=== PATIENT | male | born 1960 | race Caucasian/White ===

== ENCOUNTER 2019-07-14 15:40 | Inpatient (IN) | payer MEDICARE ==
[~2019-07-14] VITALS: Ht 165.1 cm; Wt 55.5 kg
[2019-07-14] MEDS ORDERED: HYDROCODON-ACE1 EA10 PO (15:51)
[2019-07-14] MEDS ORDERED: REMERON15 MG PO (15:51)
[2019-07-14] MEDS ORDERED: CYCLOBENZAPRINE10 MG PO (15:51)
[2019-07-14] MEDS ORDERED: TENORMIN25 MG PO (15:52)
[2019-07-14] MEDS ORDERED: GABAPENTIN100 MG PO (15:52)
[2019-07-14] MEDS ORDERED: METFORMIN HCL500 M1 PO (15:52)
[2019-07-14] MEDS ORDERED: DIOVAN80 MG PO (15:53)
[2019-07-14] MEDS ORDERED: NORVASC10 MG PO (15:53)
[2019-07-14 16:26] LABS: APPEARANCE CLEAR (CLEAR); BILIRUBIN NEGATIVE (NEGATIVE); COLOR YELLOW (YELLOW); GLUCOSE NEGATIVE (NEGATIVE); KETONE NEGATIVE (NEGATIVE); NITRITE NEGATIVE (NEGATIVE); PROTEIN NEGATIVE (NEGATIVE); SPECIFIC GRAVITY 1.015 (1.005-1.020); UROBILINOGEN NORMAL (NORMAL)
[2019-07-14 16:45] LABS: BASOPHILS 0.5 % (0-2); EOSINOPHILS 2.5 % (0-7); HEMATOCRIT 38.5 % (42.0-54.0); IMMATURE GRANULOCYTES 0.1 % (0-5); LYMPHOCYTES 20.7 % (15-50); MCH 30.7 pg (26.0-34.0); MCHC 33.8 g/dL (31.0-37.0); MCV 90.8 fL (80.0-100.0); MONOCYTES 6.3 % (2-11); NEUTROPHILS 69.9 % (40-80); PLATELET COUNT 276 10x3/uL (130-400); RBC 4.24 10x6/uL (4.20-6.10); RDW 13.8 % (11.5-14.5); WBC 9.4 10x3/uL (4.8-10.8)
[2019-07-14 16:53] LABS: CALC OSMOLALITY 283 mosm/kg (275-300); CALCIUM 9.4 mg/dL (8.5-10.1); CARBON DIOXIDE 25.6 mmol/L (21.0-32.0); CHLORIDE - SERUM 105 mmol/L (98-107); CREATININE - SERUM 1.4 mg/dL (0.6-1.3); GLUCOSE 131 mg/dL (74-106); POTASSIUM - SERUM 4.4 mmol/L (3.5-5.1); SODIUM 140 mmol/L (136-145); UREA NITROGEN 20 mg/dL (7-18); eGFR NON AFRICAN AMERICAN 55 mL/min (90-120)
[2019-07-14 16:54] LABS: APTT 26.9 SECONDS (22.8-39.4); PROTIME 12.7 SECONDS (11.6-15.0)
[2019-07-14 17:09] LABS: ALBUMIN 3.9 g/dL (3.4-5.0); ALKALINE PHOSPHATASE 43 U/L (46-116); ALT (SGPT) 20 U/L (10-68); BILIRUBIN - TOTAL 0.43 mg/dL (0.2-1.3); CREATINE KINASE 115 UL (21-232); PRO BNP 64 pg/mL (0-125); PROTEIN - SERUM 6.8 g/dL (6.4-8.2)
[2019-07-14 17:19] LABS: TROPONIN-I < 0.017 ng/mL (0.000-0.060)
--- NOTE | 2019-07-14 20:00 | NUR ---
PT ARRIVED TO FLOOR VIA STRETCHER. NO SIGNS OF DISTRESS. AAOX4. PT STATES HE NEEDS HIS NORCO THAT HE TAKES AT HOME. WILL PAGE RENAL. PT DENIES ANY OTHER NEEDS AT THIS TIME. CL IN REACH, BED IN LOWEST POSITION.
--- NOTE | 2019-07-14 21:00 | NUR ---
PAGED PORTAINER OPERATOR RENAL FOR PAIN MEDICATION, PT C/O PAIN THAT IS CHRONIC.
--- NOTE | 2019-07-14 21:22 | NUR ---
MICHAEL BAHENA RETURNED PAGE. ONE TIME DOSE OF NORCO 10 FOR TONIGHT AND TO START FINGER STICK GLUCOSE.
[2019-07-15] VITALS (7 sets, daily range): BP systolic 86–124; BP diastolic 51–73; Ht 165.1 cm; Wt 55.5 kg
[2019-07-15 06:09] LABS: BASOPHILS 0.5 % (0-2); EOSINOPHILS 4.4 % (0-7); HEMATOCRIT 35.9 % (42.0-54.0); HEMOGLOBIN 11.8 g/dL (13.5-17.5); IMMATURE GRANULOCYTES 0.4 % (0-5); LYMPHOCYTES 30.8 % (15-50); MCH 29.8 pg (26.0-34.0); MCHC 32.9 g/dL (31.0-37.0); MCV 90.7 fL (80.0-100.0); MEAN PLATELET VOLUME 10.2 fL (7.4-10.4); MONOCYTES 9.1 % (2-11); NEUTROPHILS 54.8 % (40-80); PLATELET COUNT 239 10x3/uL (130-400); RBC 3.96 10x6/uL (4.20-6.10); RDW 13.6 % (11.5-14.5); WBC 8.5 10x3/uL (4.8-10.8)
[2019-07-15 06:32] LABS: ANION GAP 12.7 mmol/L (8-16); CALCIUM 8.9 mg/dL (8.5-10.1); CARBON DIOXIDE 26.1 mmol/L (21.0-32.0); CREATININE - SERUM 1.5 mg/dL (0.6-1.3); MAGNESIUM - SERUM 1.8 mg/dL (1.8-2.4); PHOSPHOROUS 3.4 mg/dL (2.5-4.9); POTASSIUM - SERUM 3.8 mmol/L (3.5-5.1)
[2019-07-15 16:23] LABS: APPEARANCE HAZY (CLEAR); BILIRUBIN NEGATIVE (NEGATIVE); COLOR YELLOW (YELLOW); GLUCOSE NEGATIVE (NEGATIVE); KETONE NEGATIVE (NEGATIVE); NITRITE NEGATIVE (NEGATIVE); PROTEIN TRACE mg/dL (NEGATIVE); UROBILINOGEN NORMAL (NORMAL)
[2019-07-15 16:30] LABS: RED CELLS - URINE 25-50 /hpf (0-5); WHITE CELLS - URINE 0-5 /hpf (NEGATIVE)
[2019-07-15 16:31] LABS: BACTERIA NONE SEEN /hpf (NEGATIVE); EPITHELIAL CELLS NSEEN /hpf (0-5)
--- NOTE | 2019-07-15 17:24 | NUR ---
AT 1630 PT HAD A TEMP OF 101.3. DR. KWONG HERE AND ORDERS RECEIVED. GAN REMOVED WITHOUT DIFFICULTY. ROCEPHIN STARTED AND FLU SWAB OBTAINED AND TAKEN TO LAB. TEMP IS NOW 99.1 TEMPORAL. PT ONLY C/O FEELING CONGESTED IN HIS HEAD. ORDER FOR GUAIFENESIN TO START TONIGHT. NO OTHER REQUESTS OR COMPLAINTS. SL PATENT TO LEFT AC WITHOUT REDNESS OR EDEMA.
--- NOTE | 2019-07-15 17:36 | NUR ---
DECLINED USE OF SCDS.
--- NOTE | 2019-07-15 18:05 | NUR ---
I CONCUR WITH THE CHEMICALS FERMENTATION OPERATOR ASSESSMENT OF THIS PATIENT.
--- NOTE | 2019-07-15 20:00 | NUR ---
BLADDER SCAN DONE AND SHOWS 200ML OF URINE. PT UNABLE TO VOID. WILL CONTINUE TO MONITOR.
[2019-07-16] VITALS: BP 109/63
[2019-07-16 00:30] VITALS: BP 102/62
--- NOTE | 2019-07-16 02:45 | NUR ---
PT UNABLE TO VOID. BLADDER SCANNER SHOWS 450ML OF URINE IN BLADDER. GAN CATHETER PLACED WITHOUT DIFFICULTY.
[2019-07-16 04:21] VITALS: BP 73/39
[2019-07-16 04:50] VITALS: BP 98/62
[2019-07-16 05:23] LABS: BASOPHILS 0.5 % (0-2); EOSINOPHILS 5.1 % (0-7); HEMATOCRIT 35.1 % (42.0-54.0); HEMOGLOBIN 11.6 g/dL (13.5-17.5); IMMATURE GRANULOCYTES 0.3 % (0-5); LYMPHOCYTES 35.8 % (15-50); MCH 30.3 pg (26.0-34.0); MCV 91.6 fL (80.0-100.0); MEAN PLATELET VOLUME 10.3 fL (7.4-10.4); MONOCYTES 9.7 % (2-11); NEUTROPHILS 48.6 % (40-80); PLATELET COUNT 233 10x3/uL (130-400); RBC 3.83 10x6/uL (4.20-6.10); RDW 13.6 % (11.5-14.5); WBC 8.8 10x3/uL (4.8-10.8)
[2019-07-16 05:42] LABS: ANION GAP 11.6 mmol/L (8-16); CARBON DIOXIDE 28.5 mmol/L (21.0-32.0); CREATININE - SERUM 1.4 mg/dL (0.6-1.3); MAGNESIUM - SERUM 1.8 mg/dL (1.8-2.4); PHOSPHOROUS 3.6 mg/dL (2.5-4.9); POTASSIUM - SERUM 4.1 mmol/L (3.5-5.1)
[2019-07-16 09:42] VITALS: BP 90/56
[2019-07-16] MEDS ORDERED: FLOMAX0.4 MG PO (12:39)
--- NOTE | 2019-07-16 14:03 | MORECARE ---
CASE MANAGEMENT DISCHARGE SUMMARY PATIENT: CHRIS WINSLOW UNIT: [id number] ADM DATE: 07/14/19 AGE: 58 : 58 SEX: M ROOM/BED: D.2103 AUTHOR: MIKE GOMEZ PHYSICIAN: REFERRING PHYSICIAN: MELINA KWONG DO DATE OF SERVICE: 07/16/19 Discharge Plan Patient Name: CHRIS WINSLOW [facility] [facility] 1960 Planned Disposition: Home Anticipated Discharge Date: 07/16/19 Discharge Date: Expected LOS: 2 Initial Reviewer: [email or web address] Initial Review Date: 07/16/2019 Generated: 07/16/19 3:02 pm Patient Name: CHRIS WINSLOW Page [id number] at 1403 All edits/amendments must be made on the electronic document DICTATION DATE: 07/16/19 140 STEM CRUSHER: ZULEYMA 07/16/19 1402 RPT#: [id number] DC DATE: STATUS: ADM IN [facility] [address] [place] [address] END OF REPORT
--- NOTE | 2019-07-16 14:11 | MORECARE ---
CASE MANAGEMENT DISCHARGE SUMMARY PATIENT: CHRIS WINSLOW UNIT: [id number] ADM DATE: 07/14/19 AGE: 58 : 58 SEX: M ROOM/BED: D.2103 AUTHOR: JASON,DOC PHYSICIAN: REFERRING PHYSICIAN: MELINA KWONG DO DATE OF SERVICE: 07/16/19 Discharge Plan Patient Name: CHRIS WINSLOW Facility: [facility]:[place] : 1960 Planned Disposition: Home Anticipated Discharge Date: 07/16/19 Discharge Date: Expected LOS: 2 Initial Reviewer: [email or web address] Initial Review Date: 07/16/2019 Generated: 07/16/19 3:10 pm Comments DCP- Discharge Planning Updated by [email or web address]: Bebeto Lazar on 07/16/19 1:[address] Patient Name: CHRIS WINSLOW Admission Status: ER Accout number: [id number] Admission Date: 07-14-2019 : 1960 Admission Diagnosis: Attending: QUYEN Current LOS: 2 Anticipated DC Date: 07-16-2019 Planned Disposition: Home Primary Insurance: MEDICARE A & B Discharge Planning Comments: CM MET WITH PT IN ROOM TO DISCUSS DISCHARGE PLANNING AND NEEDS. PT REPORTS LIVING AT HOME INDEPENDENTLY WITH HIS NEPHEW. 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 PT HAS CANE HE USES OCCAISIONALLY WITH NO MEDICAL EQUIPMENT PROVIDER PREFERENCE. PT HAS NO OUTSIDE SERVICES ASSISTING IN THE HOME. CM DISCUSSED AVAILABILITY OF HOME HEALTH, REHAB SERVICES AND MEDICAL EQUIPMENT. PT DENIES DISCHARGE NEEDS, REPORTS HIS NEPHEW WILL PICK HIM UP FOR DISCHARGE HOME. REGISTERED LAND SURVEYOR NURSE NOTIFIED. PHYSICAL HOME ADDRESS IS [address] [place] [address]. Home Health Lvn: Bebeto Lazar DCPIA - Discharge Planning Initial Assessment Updated by [email or web address]: Bebeto Lazar on 07/16/19 2:05 pm * Is the patient Alert and Oriented? Yes * How many steps to enter\exit or inside your home? * PCP DR. HEAL[facility], [facility] [place] [facility]. * Pharmacy [facility] * Preadmission Environment Home with Family * ADLs Independent * Equipment Cane * Other Equipment NONE * List name and contact numbers for known caregivers / representatives who currently or will assist patient after discharge: JORDEN SINGH, * Verbal permission to speak to the caregivers and representatives has been obtained from the patient. N/A * Community resources currently utilized None * Please name any agencies selected above. NONE * Additional services required to return to the preadmission environment? No * Can the patient safely return to the preadmission environment? Yes * Has this patient been hospitalized within the prior 30 days at any hospital? No Patient Name: CHRIS WINSLOW Page [phone] at 1411 All edits/amendments must be made on the electronic document DICTATION DATE: 07/16/191409 LEGAL ASSOCIATE: ZULEYMA 07/16/191409 RPT#: [id number] DC DATE: STATUS: ADM IN [facility] [address] [place] [address] END OF REPORT
== END 2019-07-16 14:52 | disposition home or self-care (01) | DRG 683 ==
LOC: D.ER 15:40 → D.M2 19:13
PROVIDERS: Emergency Medicine; ADMIT Internal Medicine; ATTEND Internal Medicine
DX: N17.9 Acute kidney failure, unspecified (principal); N13.8 Other obstructive and reflux uropathy; N39.0 Urinary tract infection, site not specified; I12.9 Hypertensive chronic kidney disease with stage 1 through stage 4 chronic kidney disease, or unspecified chronic kidney disease; N18.3 Chronic kidney disease, stage 3 (moderate); E11.22 Type 2 diabetes mellitus with diabetic chronic kidney disease; D63.1 Anemia in chronic kidney disease; M54.9 Dorsalgia, unspecified; G89.29 Other chronic pain; K59.09 Other constipation; H54.8 Legal blindness, as defined in USA; Z87.891 Personal history of nicotine dependence

== ENCOUNTER 2019-07-20 14:11 | Emergency (ER) | payer MEDICARE ==
[~2019-07-20] VITALS: Ht 165.1 cm; Wt 61.4 kg
[~2019-07-20 14:11] MED LIST: CYCLOBENZAPRINE10 MG PO; DIOVAN80 MG PO; FLOMAX0.4 MG PO; GABAPENTIN100 MG PO; HYDROCODON-ACE1 EA10 PO; METFORMIN HCL500 M1 PO; NORVASC10 MG PO; REMERON15 MG PO; TENORMIN25 MG PO
[2019-07-20 14:24] VITALS: BP 124/73; Ht 165.1 cm; Wt 61.4 kg
[2019-07-20] MEDS ORDERED: FLOMAX0.4 MG PO (14:25)
[2019-07-20 14:46] LABS: BASOPHILS 0.2 % (0-2); EOSINOPHILS 2.7 % (0-7); HEMATOCRIT 34.5 % (42.0-54.0); HEMOGLOBIN 11.1 g/dL (13.5-17.5); IMMATURE GRANULOCYTES 0.1 % (0-5); LYMPHOCYTES 17.5 % (15-50); MCH 30.2 pg (26.0-34.0); MCHC 32.2 g/dL (31.0-37.0); MCV 93.8 fL (80.0-100.0); MEAN PLATELET VOLUME 9.6 fL (7.4-10.4); MONOCYTES 6.1 % (2-11); NEUTROPHILS 73.4 % (40-80); PLATELET COUNT 261 10x3/uL (130-400); RBC 3.68 10x6/uL (4.20-6.10); RDW 13.9 % (11.5-14.5); WBC 9.2 10x3/uL (4.8-10.8)
[2019-07-20 14:59] LABS: ANION GAP 13.3 mmol/L (8-16); CALCIUM 9.8 mg/dL (8.5-10.1); CARBON DIOXIDE 29.6 mmol/L (21.0-32.0); CREATININE - SERUM 1.2 mg/dL (0.6-1.3); POTASSIUM - SERUM 4.9 mmol/L (3.5-5.1)
[2019-07-20 15:11] LABS: ALBUMIN 3.7 g/dL (3.4-5.0); BILIRUBIN - TOTAL 0.43 mg/dL (0.2-1.3); PROTEIN - SERUM 6.4 g/dL (6.4-8.2)
[2019-07-20 15:30] LABS: APPEARANCE CLEAR (CLEAR); BILIRUBIN NEGATIVE (NEGATIVE); COLOR YELLOW (YELLOW); GLUCOSE NEGATIVE (NEGATIVE); KETONE NEGATIVE (NEGATIVE); NITRITE NEGATIVE (NEGATIVE); PROTEIN NEGATIVE (NEGATIVE); UROBILINOGEN NORMAL (NORMAL)
[2019-07-20 15:33] LABS: RED CELLS - URINE 0-5 /hpf (0-5); WHITE CELLS - URINE 0-5 /hpf (NEGATIVE)
[2019-07-20 15:34] LABS: BACTERIA FEW /hpf (NEGATIVE)
== END 2019-07-20 17:13 | disposition home or self-care (01) ==
LOC: D.ER 14:11
PROVIDERS: Family Medicine
DX: R60.0 Localized edema (principal); T50.905A Adverse effect of unspecified drugs, medicaments and biological substances, initial encounter; I10 Essential (primary) hypertension

== ENCOUNTER 2019-08-06 11:35 | Outpatient (CLI) | payer MEDICARE ==
[2019-07-20 14:24] VITALS: BMI 22.5
[2019-08-05 09:11] LABS: HEMOGLOBIN 14.5 g/dL (13.5-17.5); MCH 30.7 pg (26.0-34.0); MCHC 33.7 g/dL (31.0-37.0); MCV 90.9 fL (80.0-100.0); MEAN PLATELET VOLUME 9.5 fL (7.4-10.4); RBC 4.73 10x6/uL (4.20-6.10); RDW 13.6 % (11.5-14.5); WBC 13.2 10x3/uL (4.8-10.8)
[2019-08-05 09:22] LABS: ANION GAP 13.6 mmol/L (8-16); CALCIUM 9.5 mg/dL (8.5-10.1); CARBON DIOXIDE 28.3 mmol/L (21.0-32.0); CREATININE - SERUM 1.4 mg/dL (0.6-1.3); POTASSIUM - SERUM 4.9 mmol/L (3.5-5.1)
[~2019-08-06 11:35] MED LIST changes: +ALBUTEROL SULF8.5 GM INH; +EXFORGE 10-3201 TAB PO; +GLUCOPHAGE500 MG PO; +LIPITOR40 MG PO; +REMERON30 MG PO; +TENORMIN100 MG PO
--- NOTE | 2019-08-06 14:03 | NUR ---
1210 ON ASSESSMENT PATIENT STATES HE ATE BREAKFAST ABOUT 0900 THIS AM[address] SUR[address]ERY CANCELLED. DR FINNEY STATES THEY WILL RE SCHEDULE FOR SATURDAY. IV REMOVED WITH [facility] INTACT. DC'D HOME. ADVISED TO CALL DR FINNEY'S OFFICE TO GET RESCHEDULED AND TOLD NOT TO EAT OR DRINK AFTER MIDNIGHT THE NIGHT BEFORE SURGERY. VOICED UNDERSTANDING.
== END 2019-08-06 11:36 | disposition home or self-care (01) ==
LOC: D.OPS 11:35 → D.PAN 12:15 → EDSTATUS 12:15 → D.PAN 13:30 → D.OPS 13:30
PROVIDERS: Anesthesiology; ATTEND Urology
DX: R33.9 Retention of urine, unspecified (principal); N40.1 Benign prostatic hyperplasia with lower urinary tract symptoms; N13.8 Other obstructive and reflux uropathy; Z53.9 Procedure and treatment not carried out, unspecified reason

== ENCOUNTER 2019-08-10 09:00 | Emergency (ER) | payer MEDICARE ==
[~2019-08-10] VITALS: Ht 165.1 cm; Wt 60.5 kg
[2019-08-10 09:15] VITALS: BP 98/61; Ht 165.1 cm; Wt 60.5 kg
[2019-08-10] MEDS ORDERED: SMZ-TMP DS TABL1 TAB PO (09:58)
== END 2019-08-10 10:24 | disposition home or self-care (01) ==
LOC: D.ER 09:00
DX: R33.9 Retention of urine, unspecified (principal); E11.9 Type 2 diabetes mellitus without complications; I10 Essential (primary) hypertension; Z79.84 Long term (current) use of oral hypoglycemic drugs

== ENCOUNTER 2019-08-11 09:40 | Day surgery (SDC) | payer MEDICARE ==
[~2019-08-11] VITALS: Ht 165.1 cm; Wt 60.3 kg
[~2019-08-11 09:40] MED LIST changes: +SMZ-TMP DS TABL1 TAB PO
[2019-08-11 10:08] LABS: HEMATOCRIT 38.8 % (42.0-54.0); HEMOGLOBIN 12.9 g/dL (13.5-17.5); MCH 30.4 pg (26.0-34.0); MCHC 33.2 g/dL (31.0-37.0); MCV 91.3 fL (80.0-100.0); MEAN PLATELET VOLUME 9.8 fL (7.4-10.4); RBC 4.25 10x6/uL (4.20-6.10); RDW 13.6 % (11.5-14.5); WBC 18.6 10x3/uL (4.8-10.8)
[2019-08-11 10:15] LABS: ANION GAP 13.6 mmol/L (8-16); CALCIUM 9.7 mg/dL (8.5-10.1); CARBON DIOXIDE 24.7 mmol/L (21.0-32.0); CREATININE - SERUM 1.6 mg/dL (0.6-1.3); POTASSIUM - SERUM 5.3 mmol/L (3.5-5.1)
[2019-08-11 10:25] VITALS: Ht 165.1 cm; Wt 60.3 kg
--- NOTE | 2019-08-11 15:34 | NUR ---
UPON ARRIVAL TO UNIT, PT STATES URGE TO HAVE BM. I TOLD HIM THAT I CAN GET A BED CEDILLO FOR HIM RIGHT NOW, OTHERWISE HE WILL HAVE TO WAIT TO GET UP TO GO TO THE BATHROOM SINCE HE JUST HAD ANESTHESIA FOR PROCEDURE. PT IS CONFUSED. ASKED WHEN HE WAS GOING TO HAVE HIS PROCEDURE. PT DID NOT REALIZE PROCEDURE FINISHED AND IS NOW RECOVERING. PT VERY ADAMANT ABOUT HAVING A BM. I WAITED A FEW MORE MINUTES BEFORE HELPING PT TO BATHROOM W/ HELP OF ANOTHER RN.
--- NOTE | 2019-08-11 16:30 | NUR ---
DC INSTRUCTIONS GIVEN TO PT. STATES UNDERSTANDING. DC'D IV CATH FULLY INTACT.
--- NOTE | 2019-08-11 16:40 | NUR ---
PT LEFT UNIT VIA WC AT 1640
--- NOTE | 2019-08-12 08:51 | OP ---
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 PROCEDURE: UroLift times 4. FINDINGS: Obstructive bilateral lateral lobes of the prostate and also a tight bladder neck. Single ureteral orifices bilaterally with no bladder tumors. ESTIMATED BLOOD LOSS: None. CLINICAL HISTORY: This is a 58-year-old male with a history of diabetes mellitus type 2 with peripheral neuropathy. He has also had a stroke with loss of his left visual field. He has been in urinary retention since July 22, 2019 when he went to the Emergency Room with urinary retention. Postvoid residual was over 700 mL. He has been put on tamsulosin by his primary care doctor about 1 month before he went into urinary retention. He is not finding any benefit from it. His IPSS score is 15 and quality of life score is 6. He comes today to have the UroLift procedure done. HE IS ALLERGIC TO MORPHINE AND BLACK PEPPER. He was given Levaquin IV telephonic nurse case manager to the OR. DESCRIPTION OF PROCEDURE: The patient was given IV sedation. He was then placed into lithotomy position. His indwelling Chapin catheter was removed. He was prepped and draped. The UroLift scope was introduced. The lateral lobes of the prostate showed obstruction. The bladder neck is also somewhat tight. There is no median lobe. Going into the bladder, there is inflammation from the indwelling Chapin catheter. No bladder tumors were seen. There were single ureteral orifices bilaterally. A 1.5 cm distal to the bladder neck a UroLift unit was placed, one on each side at the anterolateral sulcus. Then, at the level of the verumontanum a UroLift unit was placed at the anterolateral sulcus one on each side. This opened up the prostatic urethra. The scope was removed. A 16-Setswana Chapin catheter was inserted into the bladder. The balloon was inflated with 10 mL of sterile water. He will be going home with a Chapin catheter today. I will see him in followup next week to remove the catheter for a voiding trial. TRANSINT:[id number] Voice Confirmation ID: [id number] DOCUMENT ID: [id number] CHAVEZ FINNEY MD at 0851 CC: [id number] DICTATION DATE: 08/11/19 1503 HOSPICE CONSULTANT: 08/11/19 1834 [facility] 08/11/19 [id number] [place] [address]
== END 2019-08-11 16:40 | disposition home or self-care (01) ==
LOC: D.OPS 09:40 → D.PAN 12:00 → D.OPS 16:40
PROVIDERS: Anesthesiology; ATTEND Urology
DX: N40.1 Benign prostatic hyperplasia with lower urinary tract symptoms (principal); R33.8 Other retention of urine; I10 Essential (primary) hypertension

== ENCOUNTER → 2019-10-26 18:26 | Outpatient (CLI) | payer MEDICARE ==
[2019-08-24 10:54] VITALS: BMI 22.1
[2019-10-26 18:52] LABS: BILIRUBIN NEGATIVE (NEGATIVE); GLUCOSE NEGATIVE (NEGATIVE); KETONE NEGATIVE (NEGATIVE); NITRITE NEGATIVE (NEGATIVE); SPECIFIC GRAVITY 1.015 (1.005-1.020); UROBILINOGEN NORMAL (NORMAL)
[2019-10-26 18:53] LABS: BACTERIA MODERATE /hpf (NEGATIVE); RED CELLS - URINE 0-5 /hpf (0-5); WHITE CELLS - URINE 25-50 /hpf (NEGATIVE)
== END | disposition home or self-care (01) ==
LOC: D.LABREF 18:26
PROVIDERS: ATTEND Urology
DX: N39.0 Urinary tract infection, site not specified (principal)